=== PATIENT | female | born 2000 | race Caucasian/White ===

== ENCOUNTER 2022-06-11 04:32 | Day surgery (SDC) | payer OTHER ==
[2022-06-08 17:29] VITALS: BMI 31.3
[2022-06-11] MEDS ORDERED: LACTATED RINGERS SOLUTION 1,000 ML IV SCH (11:30)
[2022-06-11] MEDS ORDERED: BUPIVACAINE HCL/PF 0.25% (2.5MG/ML) 10 ML VIAL ONE (12:47)
[2022-06-11] MEDS ORDERED: cefOXitin SODIUM 2 GM VIAL (RESTRICTED TO ID) IVPB ONE ×2 (12:48→13:45)
[2022-06-11] MEDS ORDERED: BUPIVACAINE HCL/PF 0.25% (2.5MG/ML) 10 ML VIAL IJ ONE (14:00)
[2022-06-11] MEDS ORDERED: LIDOCAINE HCL 1% EPINEPHRINE 1:200,000 30 ML VIAL (PF) ONE (14:11)
[2022-06-11] MEDS ORDERED: LIDOCAINE 2%/EPINEPHRINE 1:100000 (50 ML MD VIAL) INF ONE (14:19)
[2022-06-11] MEDS ORDERED: NEOSTIGMINE METHYLSULFATE 0.5 MG/ML - 10 ML MDV ONE (14:24)
[2022-06-11] MEDS ORDERED: GLYCOPYRROLATE 0.2 MG/1 ML VIAL ONE ×3 (14:24→14:25)
[2022-06-11] MEDS ORDERED: LIDOCAINE 2%/EPINEPHRINE 1:200,000/PF 20 ML VIAL IJ ONE (14:30)
[2022-06-11] MEDS ORDERED: ACETAMINOPHEN 1000 MG/100 ML BAG IVPB ONE (14:56)
[2022-06-11] MEDS ORDERED: ONDANSETRON 4 MG/2 ML VIAL IVPUSH PRN (16:47)
[2022-06-11] MEDS ORDERED: oxyCODONE HCL 5 MG TABLET PO PRN (16:47)
[2022-06-11 16:52] VITALS: RESP 18; TEMP 98.2
[2022-06-11] MEDS ORDERED: oxyCODONE HCL 5 MG TABLET ONE (16:53)
[2022-06-11 18:05] VITALS: BP 117/69; PULSE 68
== END 2022-06-11 17:50 | disposition home or self-care (01) ==
LOC: JASU-SURG 04:32
PROVIDERS: ATTEND Surgery
PROC: 0FT44ZZ Resection of Gallbladder, Percutaneous Endoscopic Approach (ICD-10-PCS; principal; 2022-06-11 13:00)
DX: K81.1 Chronic cholecystitis (principal)
CPT/HCPCS: 81025; 88304-TC; 94760